=== PATIENT | female | born 2000 | race Caucasian/White ===

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

== ENCOUNTER → 2022-09-13 | Outpatient (CLI) | payer MEDICAID, SELFPAY ==
--- NOTE | 2022-09-13 15:10 | RAD_ITS ---
STUDY: X-RAY - LUMBAR SPINE REASON FOR EXAM: Female, 22 years old. BACK PAIN TECHNIQUE: AP and lateral view(s) of the lumbar spine were obtained. COMPARISON: None FINDINGS: Normal lumbar lordosis. There is mild levo scoliosis or splinting secondary to muscle spasm. There is a normal alignment of the vertebrae. Normal vertebral bodies and endplates. Normal disc space heights. The soft tissue structures are unremarkable. RAD/Lumbar Spine 2 or 3 Views IMPRESSION: Mild levoscoliosis or splinting secondary to muscle spasm. No acute fracture or other significant abnormality. Electronically Signed: Alexey Tellez MD at 21:07 EDT ,
== END | disposition home or self-care (01) ==
PROVIDERS: PCP Pediatrics; Referring Provider Registered Nurse; Visit Provider Registered Nurse
DX: M54.50 Low back pain, unspecified (principal)
CPT/HCPCS: 72100

== ENCOUNTER → 2024-02-14 | Outpatient (CLI) | payer MEDICAID, SELFPAY ==
--- NOTE | 2024-02-14 07:30 | MRI_ITS ---
EXAM: MR LUMBAR SPINE WITHOUT INTRAVENOUS CONTRAST CLINICAL INDICATION: Low back pain, spondylosis, intervertebral disc displacement TECHNIQUE: Multiplanar and multisequence MR images of the lumbar spine without intravenous contrast. COMPARISON: Plain film 12/12/2023 FINDINGS: VERTEBRAE: Unremarkable. Vertebral body heights are preserved. Normal vertebral bodies and posterior elements. Normal alignment. No spondylolisthesis. There is preservation of the normal lumbar lordosis. SPINAL CORD: Unremarkable. Normal position and signal intensity of the conus medullaris. SOFT TISSUES: Unremarkable. DISCS/SPINAL CANAL/NEURAL FORAMINA: L1-L2: Unremarkable. Normal disc height and morphology. Normal spinal canal and lateral recesses. Normal neuroforamina. L2-L3: Unremarkable. Normal disc height and morphology. Normal spinal canal and lateral recesses. Normal neuroforamina. L3-L4: Unremarkable. Normal disc height and morphology. Normal spinal canal and lateral recesses. Normal neuroforamina. L4-L5: Unremarkable. Normal disc height and morphology. Normal spinal canal and lateral recesses. Normal neuroforamina. L5-S1: Unremarkable. Normal disc height and morphology. Normal spinal canal and lateral recesses. Normal neuroforamina. MRI/Spine Lumbar (Routine) IMPRESSION: Unremarkable MRI of the lumbar spine. Electronically Signed: Alfredo Stacy MD at 20:18 EDT ,
== END | disposition home or self-care (01) ==
LOC: MRI 07:15
PROVIDERS: PCP Family Medicine; Referring Provider Orthopaedic Surgery; Visit Provider Orthopaedic Surgery
DX: M54.50 Low back pain, unspecified (principal)
CPT/HCPCS: 72148

== ENCOUNTER 2025-02-21 14:00 | Outpatient (RCR) | payer MEDICAID, SELFPAY ==
--- NOTE | 2025-01-21 15:10 | HP.PTEVAL_ITS ---
Patient's Visit Information Visit Information Visit Information: GILMA CAMPBELL is a 24 year old F referred to Physical Therapy by DARSHAN Marcelo with a diagnosis of LBP. Date of Evaluation: 01/21/25 Physical Therapist: Alfredo Choudhury, PT, ATC Visit Plan Frequency: 1x/Week Duration: 2 Weeks Plan: Issue and instruct pt on HEP of core strengthening ex's and REIL Subjective Subjective: Pt reports she has had LBP for approximately 2 years. 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 Pt reports no prior MVA's or trauma to her LB. Pt reports occasional B LE radiculopathy when she is in a sitting position. Pt reports the R is worse than the L LE. Pt reports she has had a recent x-ray which revealed insignificant curvature in her L/S along with maligned hips. Pt reports she had an MRI one year ago which revealed narrowing in her L/S disc regions. Pt reports prolonged sitting, prolonged standing, and prolonged ambulation all increase her LBP. Pt reports constantly changing positions helps to decrease her pain along with MH. 4/10 at rest, 8/10 pain at worst Pain LBP: Pain Intensity (Out of 10): 4 Pain Intensity Range: 8 Objective Objective: Neuro: B LE sensation is WNL to light touch. B patellar reflex= 2/3 MMT: B LE's are 5/5 and equal throughout ROM: L/S ROM is WNL. Pain in all ranges. Repeated movements: RFIS 10x3 increases pain in LB. SYL 10x3 increased pain. REIL 10x2 decreased pain Goals Goal 1:: I with HEP in 1 visit Goal Time Frame: 1 Week Rehabilitation Potential Physical Therapy Diagnosis: Pt has LBP and occasional LE radiculopathy secondary to L/S disc derangement Rehabilitation Potential: Good Anticipated Interventions Patient/Client Instruction: Educate patient on: Condition and Plan of Care For the Purpose of:: To improve self management Therapeutic Exercise to Include: Strength training, Body mechanics, Postural training, Active ROM and Dynamic Lumbar Stabilization For the Purpose of:: To decrease pain, To improve muscle performance and motor function and To improve ability to perform ADL's Text: Thank you for the opportunity to evaluate your patient. For Medicare and Medicare HMO plans, please review the plan of care and approve it. It will need to be FAXED BACK to us at [phone] for Medicare purposes. For Medicare only, by signing this I certify the plan of care. Please let me know if there are questions or concerns regarding this plan of care. Physician Signature:_ Date:
--- NOTE | 2025-05-23 14:33 | HP.PT.NRP ---
Patient Information Patient Information: GILMA CAMPBELL was seen in my office for initial evaluation on 01/21/25. The following Plan of Care was established for this patient: POC Established Initial Frequency: 1x/Week Initial Duration: 2 Weeks Anticipated Interventions Patient/Client Instruction: Educate patient on: Condition and Plan of Care For the Purpose of:: To improve self management Therapeutic Exercise to Include: Strength training, Body mechanics, Postural training, Active ROM and Dynamic Lumbar Stabilization For the Purpose of:: To decrease pain, To improve muscle performance and motor function and To improve ability to perform ADL's Last Seen Last Seen: This patient was last seen in our office . Pertinent comments regarding their Physical therapy will appear below: Pt has not returned for greater than 30 days and is discontinued at this time. At this point I will be discontinuing this patient from physical therapy. I would be happy to see this patient again in the future if found appropriate by the physician. Thank you! Alfredo Choudhury, PT, ATC
== END 2025-02-21 19:00 | disposition home or self-care (01) ==
LOC: PT 14:00
PROVIDERS: PCP Family Medicine; Referring Provider Student in an Organized Health Care Education/Training Program; Visit Provider Student in an Organized Health Care Education/Training Program
DX: M54.50 Low back pain, unspecified (principal); G89.29 Other chronic pain; M46.1 Sacroiliitis, not elsewhere classified
CPT/HCPCS: 97110; 97161; 97530